=== PATIENT | female | born 1945 | race Two or more races ===

== ENCOUNTER 2022-10-08 19:08 | Inpatient (IN) | payer OTHER ==
[~2022-10-08] VITALS: Ht 154.9 cm; Wt 66.7 kg
[~2022-10-08 19:08] MED LIST: AZOR 5/40 MG TA1 TAB; BENICAR40 MG
--- NOTE | 2022-10-08 19:36 | NUR ---
PACIENTE ALERTA Y ORIENTADA POR MATT. REFIERE ONE YEAR CON DOLOR DE ESPALDA MADNY Y MEDIA MACIEL HACEN 4 DUPREE EMPEORO.
--- NOTE | 2022-10-08 20:19 | NUR ---
SE ORIENTA PTE SOBRE TX A SEGUIR, EL CUAL REFIERE ENTENDER. SE COLECTAN MUESTRAS Y SE ADM. MEDICAMENTOS JULY ORDEN MEDICA UTILIZANDO MEDIDAS ASEPTICAS
[2022-10-09] MEDS ORDERED: CANDESARTAN CIL16 MG (11:17)
[2022-10-09] MEDS ORDERED: DULOXETINE HCL30 MG (11:17)
[2022-10-09] MEDS ORDERED: DILTIAZEM HCL120 M1 (11:17)
== END 2022-10-16 16:33 | disposition home or self-care (01) | DRG 690 ==
LOC: ER 19:08 → SEC-K 23:33 → MEDJ 10-09 17:39
PROVIDERS: ADMIT Internal Medicine; ATTEND Internal Medicine
PROC: B54BZZZ Ultrasonography of Right Lower Extremity Veins (ICD-10-PCS; principal; 2022-10-08)
PROC: B24BZZZ Ultrasonography of Heart with Aorta (ICD-10-PCS; 2022-10-13)
PROC: CW1N1ZZ Planar Nuclear Medicine Imaging of Whole Body using Technetium 99m (Tc-99m) (ICD-10-PCS; 2022-10-14)
DX: N39.0 Urinary tract infection, site not specified (principal); R78.81 Bacteremia; B96.20 Unspecified Escherichia coli [E. coli] as the cause of diseases classified elsewhere; B96.89 Other specified bacterial agents as the cause of diseases classified elsewhere; I10 Essential (primary) hypertension; Z20.822 Contact with and (suspected) exposure to COVID-19; M50.20 Other cervical disc displacement, unspecified cervical region